=== PATIENT | female | born 1975 | race Caucasian/White ===

== ENCOUNTER 2023-03-16 10:50 | Outpatient (CLI) | payer MEDICAID ==
[2023-03-16 11:39] LABS: BILIRUBIN,URINE NEGATIVE (NEGATIVE); GLUCOSE, URINE (UA) NEGATIVE (NEGATIVE); KETONES,URINE (UA) NEGATIVE (NEGATIVE); LEUKOCYTE ESTERASE, URINE NEGATIVE (NEGATIVE); NITRITE,URINE NEGATIVE (NEGATIVE); OCCULT BLOOD,URINE NEGATIVE (NEGATIVE); PROTEIN,URINE NEGATIVE (NEGATIVE); UROBILINOGEN,URINE 0.2 (NORMAL) E.U./dL (NORMAL)
[2023-03-16 11:40] LABS: BASOPHILS % (AUTO) 0.5 %; EOSINOPHILS # (AUTO) 0.1 10^3/uL (0.0-0.7); EOSINOPHILS % (AUTO) 2.2 %; HCT - HEMATOCRIT 40.4 % (37.0-47.0); HGB - HEMOGLOBIN 13.3 g/dL (12.0-16.0); LYMPHOCYTES # (AUTO) 1.2 10^3/uL (1.5-3.5); MEAN CORPUSCULAR HEMOGLOBIN 30.3 pg (27.0-31.0); MEAN CORPUSCULAR HGB CONC 32.9 g/dL (32.0-36.0); MEAN PLATELET VOLUME 10.3 fL (7.9-10.8); MONOCYTES # (AUTO) 0.3 10^3/uL (0.0-1.0); MONOCYTES % (AUTO) 7.7 %; NEUTROPHILS # (AUTO) 2.5 10^3/uL (1.5-6.6); NEUTROPHILS % (AUTO) 59.4 %; PLT - PLATELET COUNT 214 10^3/uL (130-450); RED BLOOD COUNT 4.39 10^6/uL (4.20-5.40); RED CELL DISTRIBUTION WIDTH 12.1 % (12.0-15.0); WHITE BLOOD COUNT 4.1 x10^3/uL (4.8-10.8)
[2023-03-16 11:49] LABS: BACTERIA,URINE None Seen /HPF (None Seen); CLARITY,URINE CLEAR (CLEAR); RBC,URINE None Seen /HPF (0-5); SQUAMOUS EPITHELIAL CELL,UR RARE Squamous (<= Few); WBC,URINE 0-3 /HPF (0-5)
[2023-03-16 11:54] LABS: ALBUMIN 4.1 g/dL (3.2-5.5); ALBUMIN/GLOBULIN RATIO 1.2 (1.0-2.2); ALKALINE PHOSPHATASE 36 IU/L (42-121); ALT ALANINE AMINOTRANSFERASE 21 IU/L (10-60); AST ASPARTATE AMINOTRANSFERASE 17 IU/L (10-42); BILIRUBIN,TOTAL 0.4 mg/dL (0.2-1.0); BUN - BLOOD UREA NITROGEN 14 mg/dL (6-20); CALCIUM 9.3 mg/dL (8.5-10.3); CARBON DIOXIDE - CO2 27 mmol/L (21-32); CHLORIDE 104 mmol/L (101-111); CHOL/HDL RATIO 3.3 (<4.4); CHOLESTEROL 260 mg/dL; CREATININE 0.8 mg/dL (0.4-1.0); GFR - MDRD 76 (>89); GLUCOSE 92 mg/dL (70-100); HDL CHOLESTEROL 78 mg/dL; LDL CHOLESTEROL,CALCULATED 164 mg/dL; LDL/HDL RATIO 2.1 (<4.4); POTASSIUM 4.1 mmol/L (3.5-5.0); SODIUM 139 mmol/L (135-145); TOTAL PROTEIN 7.4 g/dL (6.7-8.2); TRIGLYCERIDES 91 mg/dL; VLDL CHOLESTEROL 18 mg/dL
[2023-03-16 12:07] LABS: THYROID STIMULATING HORMONE 2.39 uIU/mL (0.34-5.60)
[2023-03-16 12:10] LABS: ESTIMATED AVERAGE GLUCOSE 103 mg/dL (70-100); HEMOGLOBIN A1c% 5.2 % (4.27-6.07)
[2023-03-16 12:35] LABS: FOLLICLE STIMULATING HORMONE 34.04 mIU/mL
== END 2023-03-16 10:51 | disposition home or self-care (01) ==
LOC: LAB 10:50
PROVIDERS: ATTEND Physician Assistant
DX: R35.0 Frequency of micturition (principal); F51.02 Adjustment insomnia; E78.2 Mixed hyperlipidemia
CPT/HCPCS: 36415; 80053; 80061; 81001; 82670; 83001; 83036; 83721; 84443; 85025

== ENCOUNTER 2023-04-05 08:43 | Outpatient (CLI) | payer MEDICAID ==
--- NOTE | 2023-04-08 09:39 | Ultrasound Report ---
LIMITED ULTRASOUND OF RIGHT BREAST: 04/05/2023 CLINICAL: Patient returns today to evaluate a focal asymmetry in the right breast. Comparison is made to exams dated: 04/05/2023 mammogram - [facility], 04/11/2022 mamm ogram, 08/03/2021 mammogram, 01/30/2021 mammogram, 01/30/2021 aspiration, and 01/10/2021 mammogram - [facility]. Color flow and real-time ultrasound of the right breast 9-10 o'clock region were performed. Kelsey sca le images of the real-time examination were reviewed. There is a benign 1.4 cm x 1.2 cm x 0.7 cm oval simple cyst in the right breast at 9 o'clock middle d epth 4 cm from the nipple. This oval simple cyst is anechoic. This correlates with mammography find ings. Color flow imaging demonstrates that there is no vascularity present. IMPRESSION: BENIGN The 1.4 cm simple cyst in the right breast 9:00 is benign. A 1 year screening mammogram is recommended. Exam findings were conveyed to the patient. This exam was interpreted at Station ID: [id number]. Electronically Signed By: Efrem Hurtado M.D. slc/:04/05/2023 09:49:22 Ultrasound BI-RADS: 2 Benign BI-RADS CATEGORY: (2) - 2 Mammogram [id number] 1 year screening LATERALITY: (B)
--- NOTE | 2023-04-08 09:39 | Mammography Report ---
BILATERAL DIGITAL DIAGNOSTIC MAMMOGRAM 3D/2D: 04/05/2023 CLINICAL: Patient returns for a 12 month follow up of the left breast, due for bilateral exam. Comparison is made to exams dated: 04/11/2022 mammogram, 08/03/2021 mammogram, 01/30/2021 mammogram, 12/26 mammogram, 07/03/2017 mammogram, and 10/09/2016 mammogram - [facility]. Both breasts are heterogeneously dense, which may obscure small masses (category c / 51-75% glandular tissue). There is an oval asymmetry with an obscured and circumscribed margin in the right breast middle depth lateral region seen on the craniocaudal view only. Finding is seen only on tomography. There is a stable asymmetry in the left breast posterior depth central to the nipple seen on the cran iocaudal view only. Left breast biopsy clip. No other significant masses or calcifications are seen in either breast. IMPRESSION: INCOMPLETE: NEEDS ADDITIONAL IMAGING EVALUATION The oval asymmetry in the right breast middle depth lateral region seen on the craniocaudal view only resembles a cyst and is indeterminate. -A targeted ultrasound is recommended and will immediately follow. The asymmetry in the left breast posterior depth central to the nipple seen on the craniocaudal view only demonstrates long-term stability and is benign. Based on the Tyrer Cuzick model (a risk assessment model) the patients lifetime risk is 10.5% and he r 10 year risk is 2.4%. According to the ACR, ACS, and NCCN guidelines, an annual breast MRI exam cortney ng with mammogram is recommended if the patients lifetime risk is 20% or greater. This exam was interpreted at Station ID: [id number]. NOTE: For mammograms, a report in lay terms will be sent to the patient. Approximately 15% of breast malignancies will not be visualized mammographically. In the management of a palpable breast mass, a negative mammogram must not discourage biopsy of a clinically suspicious lesion. Electronically Signed By: Efrem Hurtado M.D. slc/:04/05/2023 09:57:25 ACR BI-RADS Category 0: Incomplete 3340F PARENCHYMAL PATTERN: (D) - The breast(s) demonstrate(s) heterogeneously dense fibroglandular raji elise. BI-RADS CATEGORY: (0) - 0 Ultrasound [id number] Immediate follow-up LATERALITY: (B)
== END 2023-04-05 08:44 | disposition home or self-care (01) ==
LOC: DI 08:43
PROVIDERS: ATTEND Physician Assistant
DX: N60.01 Solitary cyst of right breast (principal); R92.8 Other abnormal and inconclusive findings on diagnostic imaging of breast

== ENCOUNTER 2023-11-22 11:02 | Outpatient (CLI) | payer BC ==
[2023-11-22 15:29] LABS: BASOPHILS % (AUTO) 0.4 %; EOSINOPHILS # (AUTO) 0.1 10^3/uL (0.0-0.7); EOSINOPHILS % (AUTO) 1.9 %; HCT - HEMATOCRIT 41.2 % (37.0-47.0); HGB - HEMOGLOBIN 13.7 g/dL (12.0-16.0); LYMPHOCYTES # (AUTO) 1.9 10^3/uL (1.5-3.5); LYMPHOCYTES % (AUTO) 34.1 %; MEAN CORPUSCULAR HEMOGLOBIN 30.6 pg (27.0-31.0); MEAN CORPUSCULAR HGB CONC 33.3 g/dL (32.0-36.0); MEAN PLATELET VOLUME 11.6 fL (7.9-10.8); MONOCYTES # (AUTO) 0.5 10^3/uL (0.0-1.0); MONOCYTES % (AUTO) 8.1 %; NEUTROPHILS # (AUTO) 3.2 10^3/uL (1.5-6.6); NEUTROPHILS % (AUTO) 55.3 %; PLT - PLATELET COUNT 222 10^3/uL (130-450); RED BLOOD COUNT 4.48 10^6/uL (4.20-5.40); RED CELL DISTRIBUTION WIDTH 11.9 % (12.0-15.0); WHITE BLOOD COUNT 5.7 x10^3/uL (4.8-10.8)
[2023-11-22 15:52] LABS: ALBUMIN 4.7 g/dL (3.2-5.5); ALBUMIN/GLOBULIN RATIO 1.6 (1.0-2.2); ALKALINE PHOSPHATASE 36 IU/L (42-121); ALT ALANINE AMINOTRANSFERASE 12 IU/L (10-60); AST ASPARTATE AMINOTRANSFERASE 17 IU/L (10-42); BILIRUBIN,TOTAL 0.6 mg/dL (0.2-1.0); BUN - BLOOD UREA NITROGEN 15 mg/dL (6-20); CALCIUM 10.6 mg/dL (8.5-10.3); CARBON DIOXIDE - CO2 29 mmol/L (21-32); CHLORIDE 102 mmol/L (101-111); CHOL/HDL RATIO 2.8 (<4.4); CHOLESTEROL 209 mg/dL; CREATININE 0.8 mg/dL (0.6-1.3); GFR - MDRD 76 (>89); GLUCOSE 113 mg/dL (74-104); HDL CHOLESTEROL 76 mg/dL; LDL CHOLESTEROL,CALCULATED 116 mg/dL; LDL/HDL RATIO 1.5 (<4.4); SODIUM 138 mmol/L (135-145); TOTAL PROTEIN 7.7 g/dL (6.4-8.9); TRIGLYCERIDES 83 mg/dL (48-352); VLDL CHOLESTEROL 17 mg/dL
[2023-11-22 20:25] LABS: ESTIMATED AVERAGE GLUCOSE 100 mg/dL (70-100); HEMOGLOBIN A1c% 5.1 % (4.27-6.07)
== END 2023-11-22 11:03 | disposition home or self-care (01) ==
LOC: LAB.S 11:02
PROVIDERS: ATTEND Physician Assistant Medical
DX: Z13.9 Encounter for screening, unspecified (principal)
CPT/HCPCS: 36415; 80053; 80061; 83036; 83721; 84443; 85025

== ENCOUNTER 2024-03-17 10:33 | Day surgery (SDC) | payer BC ==
[2024-03-17] MEDS: LACTATED RINGERS 1,000 ML IV ONE (10:36)
--- NOTE | 2024-03-17 11:35 | ANESTHESIA ---
Pre-Anesthesia VS, & Labs - Diagnosis screening - Procedure colonoscopy Vital Signs: Temp Pulse Resp BP Pulse Ox O2 Flow Rate 36.8 C 85 18 154/89 H 98 03/17/24 10:41 03/17/24 10:41 03/17/24 10:41 03/17/24 10:41 03/17/24 10:41 Height: 5 ft 7 in Weight (kg): 72.8 kg Body Mass Index: 25.1 BMI Classification: Overweight - NPO Other (prep as directed) - Is Patient ?: No Home Medications and Allergies Home Medications: Ambulatory Orders Pantoprazole [Protonix] 40 mg PO DAILY 03/17/24 clonazePAM [Clonazepam] 0.25 mg PO TID 03/17/24 Pantoprazole [Protonix] 40 mg PO DAILY 03/17/24 clonazePAM [Clonazepam] 0.25 mg PO TID 03/17/24 Allergies/Adverse Reactions: Allergies Allergy/AdvReac Type Severity Reaction Status Date / Time oxycodone Allergy Severe Unknown Verified 03/17/24 10:28 phenytoin Allergy Severe Unknown Verified 03/17/24 10:28 cephalexin Allergy Mild Unknown Verified 03/17/24 10:28 Anes History & Medical History - Anesthetic History Anesthesia Complications: reports: No previous complications - Medical History Cardiovascular: reports: None Pulmonary: reports: None Neuro: reports: Seizure disorder Musculoskeletal: reports: Osteoarthritis Smoking Status: Never smoker - Surgical History Gynecologic: reports: Hysterectomy, LEEP (Cervical surgery) Exam General: Alert, Oriented x3 Dental: WNL Mouth Opening: Greater than 4 Fingerbreadths Neck Mobility: Normal Mallampati classification: I Thyromental Distance: greater than 6 cm Respiratory: Lungs clear Cardiovascular: Regular rate Plan Anesthesia Type: Total IV Consent for Procedure(s) Verified and Reviewed: Yes Code Status: Attempt Resuscitation ASA classification: 2-Mild systemic disease Is this case an emergency?: No
[2024-03-17] MEDS ORDERED: LIDOCAINE-MPF 2% 5 ML VIAL ONE (11:36)
[2024-03-17] MEDS ORDERED: PROPOFOL 500 MG/50 ML 500 MG/50 ML VIAL ONE (11:36)
[2024-03-17] MEDS: LACTATED RINGERS 500 ML IV ONE (13:15)
--- NOTE | 2024-03-17 14:05 | ANESTHESIA POST OP EVALUATION ---
Anesthesia Post Eval - Post Anesthesia Eval Vitals: Last Vital Signs Temp 36.3 C L 03/17/24 13:48 Pulse 66 03/17/24 13:48 Resp 16 03/17/24 13:48 BP 98/64 03/17/24 13:48 Pulse Ox 99 03/17/24 13:48 O2 Flow Rate CV Function Including HR & BP: Stable Pain Control: Satisfactory Nausea & Vomiting: Negative Mental Status: Baseline Respiratory Status: Airway Patent, Other (Patient had coughing and O2 requirement intially upon arrival to [facility], denies SOB. Now RA 97% and feels well. Instructed patient to call if she develops cough or fever.) Hydration Status: Satisfactory Anesthesia Complications: None
[2024-03-17 14:40] VITALS: O2SAT 98
[2024-03-17] MEDS: CALCIUM CARBONATE CHEW 500 MG TABLET PO ONE (14:50)
[2024-03-17] MEDS ORDERED: CALCIUM CARBONATE CHEW 500 MG TABLET PO ONE (15:00)
--- NOTE | 2024-03-17 15:02 | ANESTHESIA POST OP EVALUATION ---
Anesthesia Post Eval - Post Anesthesia Eval Vitals: Last Vital Signs Temp 36.3 C L 03/17/24 14:32 Pulse 75 03/17/24 14:32 Resp 18 03/17/24 14:32 BP 98/76 03/17/24 14:32 Pulse Ox 98 03/17/24 14:32 O2 Flow Rate - Other Details/Therapies Other Details/Therapies: Called by nursing staff after patient was found on bathroom floor right before discharge. 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 Evaluated patient at bedside. She is awake and responding appropriately. She feels this was a pseudo-seizure and declined ER evaluation. Her blood sugar was initially 56 and juice was given. Repeat blood sugar is 75. She is also complaining of acid reflux. Tums had been ordered by surgeon. Added 20mg famotidine. With vital signs stable and no other symptoms, patient is ok to discharge. Advised to return to ER if condition worsens.
[2024-03-17] MEDS: ONDANSETRON ODT 4 MG TABLET ONE (15:05)
[2024-03-17] MEDS: FAMOTIDINE 20 MG TABLET PO ONE (15:18)
[2024-03-17 15:21] VITALS: BP 121/67
== END 2024-03-17 10:34 | disposition home or self-care (01) ==
LOC: SDS 10:33
PROVIDERS: ATTEND Surgery
DX: Z12.11 Encounter for screening for malignant neoplasm of colon (principal); K57.30 Diverticulosis of large intestine without perforation or abscess without bleeding
CPT/HCPCS: 45378; A9270; J7120; Q0162

== ENCOUNTER 2024-05-28 12:01 | Outpatient (CLI) | payer BC ==
--- NOTE | 2024-05-28 16:47 | XRAY Report ---
PROCEDURE: Shoulder 2+V LT INDICATIONS: LT SHOULDER PAIN TECHNIQUE: 3 views of the shoulder were acquired. COMPARISON: None. FINDINGS: Bones: No fractures or dislocations. No suspicious bony lesions. Visualized ribs appear intact. Soft tissues: No suspicious soft tissue calcifications. The visualized lungs are within normal limi ts. IMPRESSION: No acute bony abnormality. Reviewed by: Yanick Victoria MD on 05/28/2024 4:45 PM PDT Approved by: Yanick Victoria MD on 05/28/2024 4:45 PM PDT Station ID: [id number]
== END 2024-05-28 12:02 | disposition home or self-care (01) ==
LOC: DI.S 12:01
PROVIDERS: ATTEND Physician Assistant
DX: M25.512 Pain in left shoulder (principal); G89.29 Other chronic pain